=== PATIENT | female | born 1985 | race Caucasian/White ===

== ENCOUNTER 2016-12-28 10:04 | Emergency (ER) | payer SELFPAY ==
[~2016-12-28] VITALS: Ht 152.4 cm; Wt 52.0 kg
[2016-12-28 10:16] VITALS: BP 119/78
== END 2016-12-28 10:56 | disposition left against medical advice (07) ==
LOC: ED 10:50
DX: Z53.21 Procedure and treatment not carried out due to patient leaving prior to being seen by health care provider (principal)